=== PATIENT | female | born 1995 ===

== ENCOUNTER 2024-09-10 06:30 | Outpatient (RCR) | payer OTHER, SELFPAY | END 2024-10-10 23:59 | disposition home or self-care (01) | LOC: SPT 06:30 | PROVIDERS: Visit Provider Emergency Medicine Emergency Medical Services | DX: M26.609 Unspecified temporomandibular joint disorder, unspecified side (principal) | CPT/HCPCS: 97110; 97140; 97161; 97530 ==

== ENCOUNTER 2024-10-11 05:00 | Outpatient (RCR) | payer OTHER, SELFPAY | END 2024-11-09 23:59 | disposition home or self-care (01) | LOC: SPT 05:00 | PROVIDERS: Visit Provider Emergency Medicine Emergency Medical Services | DX: M26.609 Unspecified temporomandibular joint disorder, unspecified side (principal) | CPT/HCPCS: 97140; 97530 ==

== ENCOUNTER 2024-11-10 05:00 | Outpatient (RCR) | payer OTHER, SELFPAY | END 2024-12-10 23:59 | disposition home or self-care (01) | LOC: SPT 05:00 | PROVIDERS: Visit Provider Emergency Medicine Emergency Medical Services | DX: M26.609 Unspecified temporomandibular joint disorder, unspecified side (principal) | CPT/HCPCS: 97140 ==

== ENCOUNTER 2025-01-11 06:30 | Outpatient (RCR) | payer OTHER, SELFPAY | END 2025-02-09 23:59 | disposition home or self-care (01) | LOC: SPT 06:30 | PROVIDERS: Visit Provider Emergency Medicine Emergency Medical Services | DX: M26.609 Unspecified temporomandibular joint disorder, unspecified side (principal) | CPT/HCPCS: 97110; 97140; 97530 ==